=== PATIENT | male | born 1940 | race Caucasian/White ===

== ENCOUNTER 2016-05-18 13:20 | Emergency (ER) | payer MEDICARE, OTHER ==
[2016-05-18] MEDS ORDERED: DUONEB INH ONE (19:06)
[2016-05-18] MEDS ORDERED: Furosemide 40 MG/4 ML VIAL ONE (20:34)
== END 2016-05-18 22:14 | disposition home or self-care (01) ==
LOC: ER 13:20
DX: R60.9 Edema, unspecified (principal); I50.9 Heart failure, unspecified; D64.9 Anemia, unspecified; I25.10 Atherosclerotic heart disease of native coronary artery without angina pectoris; Z95.1 Presence of aortocoronary bypass graft; C34.90 Malignant neoplasm of unspecified part of unspecified bronchus or lung; Z79.4 Long term (current) use of insulin; Z79.84 Long term (current) use of oral hypoglycemic drugs; Z79.82 Long term (current) use of aspirin; Z79.01 Long term (current) use of anticoagulants; Z79.899 Other long term (current) drug therapy; Z87.891 Personal history of nicotine dependence
CPT/HCPCS: 36415; 71010; 80053; 82553; 83880; 84484; 85025; 85610; 85730; 93005; 93970; 94640; 96374